=== PATIENT | male | born 1985 | race Two or more races ===

== ENCOUNTER 2022-12-28 23:02 | Emergency (ER) | payer MEDICAID, OTHER ==
[~2022-12-28] VITALS: Ht 177.8 cm; Wt 66.3 kg
[2022-12-29 00:23] VITALS: BP 131/65; PULSE 140; RESP 16; O2SAT 96
[2022-12-29 01:06] LABS: Chloride 107 mmol/L (98-107); Potassium 3.3 mmol/L (3.5-5.1); Sodium 141 mmol/L (136-145)
[2022-12-29 01:07] LABS: Anion Gap 11.5 (5-15); Calcium 9.5 mg/dL (8.7-10.4); Carbon Dioxide 22.5 mmol/L (20-30)
[2022-12-29 01:12] LABS: BUN/Creatinine Ratio 11.5 (10.0-20.0); Blood Urea Nitrogen 13 mg/dL (9-23); Glucose 162 mg/dL (74-106)
[2022-12-29 01:14] LABS: Basophils # (auto) 0.1 10 ^3/uL (0-0.2); Basophils % (auto) 0.6 % (0.0-2.0); Eosinophils # (auto) 0 10 ^3/uL (0-0.8); Hematocrit 42.6 % (41.0-53.0); Hemoglobin 14.3 g/dL (13.5-17.5); Lymphocytes # (auto) 0.8 10 ^3/uL (0.4-5.4); Lymphocytes % (auto) 8.2 % (10.0-50.0); Mean Corpuscular Hemoglobin 30.6 pg (28.0-32.0); Mean Corpuscular Hgb Conc. 33.4 g/dL (32.0-36.0); Mean Corpuscular Volume 91.5 fL (80.0-100.0); Monocytes # (auto) 0.8 10 ^3/uL (0-1.3); Monocytes % (auto) 8.6 % (0.0-12.0); Neutrophils # (auto) 7.9 10 ^3/uL (1.6-8.6); Neutrophils % (auto) 82.6 % (37.0-80.0); Nucleated Red Blood Cells % 0.1 %; Red Blood Cells 4.66 10^6/uL (4.5-5.90); Red Cell Distribution Width 13.7 % (11.8-14.3); White Blood Cell 9.5 10^3/uL (4.4-10.8)
[2022-12-29 01:15] LABS: Blood Alcohol < 3.0 mg/dL (<10)
[2022-12-29] MEDS ORDERED: SUMA50TA2 PO (08:02)
== END 2022-12-29 05:02 | disposition home or self-care (01) ==
LOC: ER 23:02
DX: F19.10 Other psychoactive substance abuse, uncomplicated (principal); F15.10 Other stimulant abuse, uncomplicated
CPT/HCPCS: 36415; 80048; 80320; 85025

== ENCOUNTER 2022-12-29 07:11 | Emergency (ER) | payer MEDICAID ==
[~2022-12-29] VITALS: Ht 175.3 cm; Wt 67.7 kg
[2022-12-29 07:47] VITALS: BP 133/87; PULSE 118; RESP 20; TEMP 99.5; O2SAT 97
[2022-12-29] MEDS ORDERED: KETOROLAC TROMETH 60MG/2ML VIAL IM ONE (08:00)
[2022-12-29] MEDS ORDERED: SUMA50TA2 PO (08:02)
== END 2022-12-29 08:12 | disposition home or self-care (01) ==
LOC: ER 07:11
DX: M79.10 Myalgia, unspecified site (principal); G43.909 Migraine, unspecified, not intractable, without status migrainosus; Z79.899 Other long term (current) drug therapy
CPT/HCPCS: 96372; 99283; J1885

== ENCOUNTER 2022-12-29 18:35 | Emergency (ER) | payer MEDICAID ==
[~2022-12-29] VITALS: Ht 175.3 cm; Wt 66.4 kg
[~2022-12-29 18:35] MED LIST: SUMA50TA2 PO
[2022-12-29 18:44] VITALS: BP 136/76; PULSE 102; RESP 18; TEMP 98.9; O2SAT 99
[2022-12-29] MEDS: IBUPROFEN 800 MG TAB PO ONE ×2 (23:00→23:49)
== END 2022-12-29 23:52 | disposition home or self-care (01) ==
LOC: ER 18:35
DX: T21.10XA Burn of first degree of trunk, unspecified site, initial encounter (principal); Z79.899 Other long term (current) drug therapy; X08.8XXA Exposure to other specified smoke, fire and flames, initial encounter; Y93.89 Activity, other specified; Y92.89 Other specified places as the place of occurrence of the external cause; Y99.8 Other external cause status

== ENCOUNTER 2022-12-30 14:28 | Emergency (ER) | payer MEDICAID, OTHER ==
[~2022-12-30] VITALS: Ht 172.7 cm; Wt 68.1 kg
[2022-12-30 14:28] VITALS: BP 144/96; PULSE 116; RESP 14; O2SAT 90
== END 2022-12-30 18:24 | disposition left against medical advice (07) ==
LOC: EDUNIT# 14:28 → ER 14:28 → EDBD 14:28 → ER 18:24
DX: R55 Syncope and collapse (principal); Z53.21 Procedure and treatment not carried out due to patient leaving prior to being seen by health care provider

== ENCOUNTER 2024-02-24 15:44 | Emergency (ER) | payer MEDICAID ==
[~2024-02-24] VITALS: Ht 172.7 cm; Wt 70.0 kg
[2024-02-24 15:58] VITALS: BP 135/79; PULSE 122; RESP 16; O2SAT 97
[2024-02-24] MEDS: cefTRIAXone SOD 1,000 MG VL IM ONE (16:27)
[2024-02-24] MEDS: KETOROLAC TROMETH 60MG/2ML VIAL IM ONE (16:28)
[2024-02-24] MEDS ORDERED: NAPR-746 PO (16:36)
[2024-02-24] MEDS ORDERED: BACDST PO (16:36)
== END 2024-02-24 16:55 | disposition home or self-care (01) ==
LOC: ER 15:44
DX: S70.361A Insect bite (nonvenomous), right thigh, initial encounter (principal); F41.9 Anxiety disorder, unspecified; F15.90 Other stimulant use, unspecified, uncomplicated; Z79.899 Other long term (current) drug therapy; W57.XXXA Bitten or stung by nonvenomous insect and other nonvenomous arthropods, initial encounter; Y93.89 Activity, other specified; Y92.89 Other specified places as the place of occurrence of the external cause; Y99.8 Other external cause status
CPT/HCPCS: 96372; 99284; J0696; J1885